=== PATIENT | female | born 1950 | race Hispanic/Latino ===

== ENCOUNTER → 2017-10-31 | Outpatient (CLI) | payer MEDICARE ==
[~2017-10-31] MED LIST: ALENDRONATE SOD70 MG PO; CALCIUM 500+D1 EACH PO; CEFDINIR300 MG PO; FOLIC ACID1 MG PO; IBUPROFEN400 MG PO; LISINOPRIL2.5 MG PO; METHOTREXATE2.5 MG PO; SIMVASTATIN20 MG PO
--- NOTE | 2017-10-31 12:24 | Diagnostic Imaging Report ---
Left knee MRI without contrast. History: Knee pain. Medial meniscus tear. Decreased range of motion. Comparison: None. Technique: Multiplanar multi-sequence MRI of the knee without contrast. Findings: Medial compartment: There is mid substance degeneration of the medial meniscus at the posterior horn with an obliquely oriented nondisplaced undersurface tear best seen on sagittal series 3 image 29. Medial compartmental articular cartilage surfaces are thinned regions of fraying and fissuring. The medial collateral ligament complex is degenerated but intact. Lateral compartment: There is degeneration and fraying of the lateral meniscus. No lateral meniscus tear is seen. Lateral compartmental articular cartilage surfaces are thinned. The lateral collateral ligament complex is intact. Intercondylar notch: There is scarring and attenuation of the anterior cruciate ligament. The posterior cruciate ligament is intact. Patellofemoral compartment: There is articular cartilage fraying and fissuring in the patellofemoral compartment. Extensor mechanism: The quadriceps and patellar tendons are normal. Other findings: There is a joint effusion and synovitis. There is no acute fracture, subluxation or avascular necrosis. There is a lobulated septated Lopez's cyst containing debris. IMPRESSION: Nondisplaced medial meniscus tear with mild degenerative arthrosis in the medial compartment of the knee. Mild degenerative arthrosis in the lateral and patellofemoral compartments. Joint effusion, synovitis and lobulated septated Lopez's cyst containing debris. Signed by: Dr. Chance Guzman M.D. on 10/31/2017 12:21 PM
== END ==
LOC: MRI 08:54
PROVIDERS: ATTEND Specialist
DX: S83.222A Peripheral tear of medial meniscus, current injury, left knee, initial encounter (principal)

== ENCOUNTER → 2017-12-27 | Day surgery (SDC) | payer MEDICARE ==
[2017-12-18 09:33] LABS: BASOPHILS # (AUTO) 0.1 (0.0-0.1); BASOPHILS % 0.6 % (0.0-1.0); EOSINOPHILS # (AUTO) 0.1 (0.0-0.4); EOSINOPHILS % 1.2 % (0.0-6.0); HEMATOCRIT 38.9 % (34.2-44.1); HEMOGLOBIN 12.7 g/dL (12.0-16.0); LYMPHOCYTES # (AUTO) 1.8 (1.0-3.2); LYMPHOCYTES % 23.5 % (18.0-39.1); MEAN CORPUSCULAR HEMOGLOBIN 31.1 pg (28-32); MEAN CORPUSCULAR HGB CONC 32.6 g/dL (31-35); MEAN CORPUSCULAR VOLUME 95.3 fL (81-99); MONOCYTES # (AUTO) 0.9 (0.2-0.8); NEUTROPHILS # (AUTO) 4.8 (2.1-6.9); NEUTROPHILS % 61.8 % (38.7-80.0); PLATELET COUNT 276 x10e3/uL (140-360); RED BLOOD COUNT 4.08 x10e6/uL (3.6-5.1); RED CELL DISTRIBUTION WIDTH 13.3 % (11.7-14.4)
--- NOTE | 2017-12-18 10:21 | Diagnostic Imaging Report ---
PROCEDURE: Frontal and lateral views of the chest. COMPARISON: None. INDICATIONS: PREOPERATIVE CHEST XRAY FOR KNEE SURGERY FINDINGS: Lines/tubes: None. Lungs: The lungs are well inflated. There is no evidence of pneumonia or pulmonary edema. Mild right basilar opacity, likely atelectasis. Pleura: There is no pleural effusion or pneumothorax. Heart and mediastinum: The cardiomediastinal silhouette is unremarkable. Bones: No acute bony abnormality. IMPRESSION: No acute cardiopulmonary disease. Dictated by: CASI HENDERSON M.D. on 12/18/2017 at 9:59 Electronically approved by: CASI HENDERSON M.D. on 12/18/2017 at 9:59
[~2017-12-27] MED LIST changes: +BUPIVACAINE 0.5%/EPI 30 ML SDV INJ ONE; +CEFAZOLIN SOD 2 GM/D5W 50ML 50 ML IV ONE; +DEXAMETHASONE SOD PHOS INJ 4 MG/ML VIAL ONE; +FENTANYL CITRATE/PF 100MCG/2 ML INJ ONE; +HYDROXYCHLOROQ200 MG PO; +KETOROLAC TROMETHAMINE 30 MG/ML VIAL ONE; +LIDOCAINE HCL 2% LOCAL INJ 5 ML SDV VIAL INJ ONE; +MEPERIDINE HCL INJ 50 MG/ML INJ ONE; +MIDAZOLAM HCL 2 MG/2 ML VIAL ONE; +ONDANSETRON HCL INJ 2 MG/ML VIAL ONE; +PREDNISONE5 MG PO; +PROPOFOL IV EMULSION 10 MG/ML 20 ML VIAL ONE; +SEVOFLURANE INHAL SOLN 250 ML PEN BTL ONE
[2017-12-27 14:40] VITALS: BP 109/71
--- NOTE | 2017-12-28 17:46 | Operative Report ---
DATE OF PROCEDURE: December 27, 2017 PREOPERATIVE DIAGNOSES: 1. Left knee medial meniscus tear. 2. Left knee degenerative joint disease of the knee. POSTOPERATIVE DIAGNOSES: 1. Left knee medial meniscus tear. 2. Left knee degenerative joint disease of the knee. 3. Left knee medial shelf plica. PROCEDURES PERFORMED: The patient underwent a 1. Left knee examination under anesthesia. 2. Left knee arthroscopy. 3. Left knee partial medial meniscectomy. 4. Left knee chondroplasty of the patella, the trochlea, the medial femoral condyle and the medial tibial plateau, the lateral femoral condyle and the lateral tibial plateau. 5. Resection of a medial shelf plica. CRYPTOLOGIST: None. ANESTHESIA: General endotracheal intubation anesthesia. IV FLUIDS: As per the anesthesia record. DESCRIPTION OF PROCEDURE: Ms. Ferreira was taken to the operating room and placed in the supine position on the operating table. Following induction of general anesthesia as well as endotracheal intubation, the patient's left lower extremity was examined under anesthesia. She was found to have a mild effusion within the knee joint but an otherwise ligamentously stable knee. The patient's lower extremity was prepped and draped in standard surgical fashion. A 2-portal technique was used to provide this patient an arthroscopic evaluation of the knee joint. Examination of the suprapatellar pouch, medial and lateral gutters found no evidence of loose bodies. There was, however, evidence of chondromalacia of both the patellar and trochlear surfaces. The scope was then advanced in the medial compartment. Examination of the medial compartment demonstrated a torn posterior horn of the medial meniscus. There was also chondromalacia of articulating surfaces. A combination of biting forceps and a motorized shaver were used to resect the torn portion of the meniscus. Chondroplasties of the medial femoral condyle and medial tibial plateau were performed at this time. The scope was then advanced into the intercondylar notch, and the anterior cruciate ligament was identified and found to be intact. The scope was then advanced into the lateral compartment, and there was chondromalacia of the articulating surfaces. The scope was then advanced to the intercondylar notch, and the anterior cruciate ligament was identified and found to be intact. The scope was then advanced into the lateral compartment, and chondromalacia of the lateral tibial plateau and lateral femoral condyle was encountered. A chondroplasty of each of these surfaces was performed at this time. The scope was then placed in the suprapatellar pouch, and chondroplasties of the patella and trochlea were performed. There was also a medial shelf plica, and this was resected at this time. The knee was deflated of its sterile normal saline. Each of the portal sites was closed using 4-0 nylon suture. The portal sites as well as the knee itself were then injected with half percent Marcaine with epinephrine. Sterile dressings were applied, and the patient was awakened and taken to the postanesthesia care unit in stable condition. Job#: [id number]
== END | disposition home or self-care (01) ==
LOC: OR 09:00
PROVIDERS: ATTEND Specialist
DX: S83.262A Peripheral tear of lateral meniscus, current injury, left knee, initial encounter (principal); M17.12 Unilateral primary osteoarthritis, left knee; M67.52 Plica syndrome, left knee; M22.42 Chondromalacia patellae, left knee; N39.0 Urinary tract infection, site not specified; I10 Essential (primary) hypertension; E78.00 Pure hypercholesterolemia, unspecified; F17.200 Nicotine dependence, unspecified, uncomplicated; X58.XXXA Exposure to other specified factors, initial encounter; Z01.810 Encounter for preprocedural cardiovascular examination; Z01.812 Encounter for preprocedural laboratory examination; Z01.818 Encounter for other preprocedural examination; Z68.34 Body mass index [BMI] 34.0-34.9, adult
CPT/HCPCS: 29881; 36415; 71046; 85025; 93005; J1100; J1885; J2001; J2175; J2250; J2405

== ENCOUNTER → 2019-02-12 | Outpatient (CLI) | payer MEDICARE ==
[~2019-02-12] MED LIST changes: -BUPIVACAINE 0.5%/EPI 30 ML SDV INJ ONE; -CEFAZOLIN SOD 2 GM/D5W 50ML 50 ML IV ONE; -DEXAMETHASONE SOD PHOS INJ 4 MG/ML VIAL ONE; -FENTANYL CITRATE/PF 100MCG/2 ML INJ ONE; -KETOROLAC TROMETHAMINE 30 MG/ML VIAL ONE; -LIDOCAINE HCL 2% LOCAL INJ 5 ML SDV VIAL INJ ONE; -MEPERIDINE HCL INJ 50 MG/ML INJ ONE; -MIDAZOLAM HCL 2 MG/2 ML VIAL ONE; -ONDANSETRON HCL INJ 2 MG/ML VIAL ONE; -PROPOFOL IV EMULSION 10 MG/ML 20 ML VIAL ONE; -SEVOFLURANE INHAL SOLN 250 ML PEN BTL ONE
--- NOTE | 2019-02-12 09:52 | Diagnostic Imaging Report ---
MRI of the left shoulder without contrast. History: Shoulder pain. Decreased range of motion. Pain not responding to conservative management. Comparison: None Technique: Coronal PD FS, sagital PD FS, and axial PD and PD FS. Findings: Rotator cuff: Rotator cuff tendinosis with full-thickness tear involving the supraspinatus and anterior fibers of the infraspinatus tendons at the humeral insertion site. There is retraction of the torn fibers to the level of the glenoid and mild supraspinatus and infraspinatus muscle atrophy. Additionally, there is subscapularis tendinosis. The teres minor tendon is intact. Osseous acromion complex: Type II acromion with mild lateral downsloping. Mild degenerative arthrosis at the acromioclavicular joint. Moderate subacromial/subdeltoid bursitis. Glenohumeral joint: Degeneration and fraying of the labrum. The articular cartilage surfaces are slightly thin. Effusion/synovitis in the rotator interval and subcoracoid space. Biceps tendon: Intra-articular biceps tendinosis with fraying at the biceps anchor. Other findings: Negative for muscle denervation or osseous fracture. Impression: Rotator cuff tendinosis with full-thickness tear involving the supraspinatus and anterior fibers of the infraspinatus tendons at the humeral insertion site. There is retraction of the torn fibers to the level of the glenoid and mild supraspinatus and infraspinatus muscle atrophy. Effusion/synovitis in the rotator interval and subcoracoid space.Moderate subacromial/subdeltoid bursitis. Intra-articular biceps tendinosis with fraying at the biceps anchor. Signed by: Dr. Chance Guzman M.D. on 02/12/2019 9:48 AM
== END ==
LOC: MRI 08:18
PROVIDERS: ATTEND Specialist
DX: M75.122 Complete rotator cuff tear or rupture of left shoulder, not specified as traumatic (principal)

== ENCOUNTER → 2019-02-27 | Day surgery (SDC) | payer MEDICARE ==
[2019-02-19 12:38] LABS: BASOPHILS % 0.4 % (0.0-1.0); EOSINOPHILS % 0.2 % (0.0-6.0); HEMATOCRIT 36.6 % (34.2-44.1); HEMOGLOBIN 11.8 g/dL (12.0-16.0); LYMPHOCYTES # (AUTO) 1.1 (1.0-3.2); LYMPHOCYTES % 12.5 % (18.0-39.1); MEAN CORPUSCULAR HEMOGLOBIN 30.6 pg (28-32); MEAN CORPUSCULAR HGB CONC 32.2 g/dL (31-35); MEAN CORPUSCULAR VOLUME 95.1 fL (81-99); MONOCYTES # (AUTO) 0.4 (0.2-0.8); MONOCYTES % 4.5 % (4.4-11.3); NEUTROPHILS # (AUTO) 7.2 (2.1-6.9); NEUTROPHILS % 80.8 % (38.7-80.0); PLATELET COUNT 267 x10e3/uL (140-360); RED BLOOD COUNT 3.85 x10e6/uL (3.6-5.1); RED CELL DISTRIBUTION WIDTH 14.7 % (11.7-14.4)
--- NOTE | 2019-02-19 14:13 | Diagnostic Imaging Report ---
EXAMINATION: CHEST 2 VIEWS INDICATION: Pre-operative COMPARISON: None FINDINGS: LINES/TUBES:None LUNGS:The lungs are well-inflated. No focal consolidation or pulmonary edema. PLEURA:No pleural effusion or pneumothorax. MEDIASTINUM:The cardiomediastinal silhouette appears normal in size and shape. BONES/SOFT TISSUES:No acute osseous injury. ABDOMEN:No free air under the diaphragm. IMPRESSION: No focal pneumonia or pulmonary edema. Signed by: Della Delvalle MD on 02/19/2019 2:10 PM
[~2019-02-27] MED LIST changes: +ACETAMINOPHEN 1000 MG/100 ML IV ONE; +ASPIRIN81 MG PO; +ATORVASTATIN CA20 MG PO; +BUPIVACAINE 0.25% 30ML SDV INJ ONE; +CEFAZOLIN SOD 1 GM/NS 50ML 100 ML IV ONE; +DEXAMETHASONE SOD PHOS INJ 4 MG/ML VIAL ONE; +EPINEPHRINE 1 MG/ML 30ML VIAL ONE; +FENTANYL CITRATE/PF 100MCG/2 ML INJ ONE; +GLYCOPYRROLATE INJ 1MG/ 5 ML SYR ONE; +LIDOCAINE HCL 2% JELLY 5 ML TUBE ONE; +LIDOCAINE HCL 2% LOCAL 20 ML VIAL ONE; +LIDOCAINE HCL 2% LOCAL INJ 5 ML SDV VIAL INJ ONE; +MIDAZOLAM HCL 2 MG/2 ML VIAL ONE; +NEOSTIGMINE 5 MG/5ML SYR ONE; +ONDANSETRON HCL INJ 2MG/ML 2ML 2 MG/ML VIAL ONE; +PROPOFOL IV EMULSION 10 MG/ML 20 ML VIAL ONE; +ROCURONIUM BROMIDE 10 MG/ML 5ML VIAL ONE; +SEVOFLURANE INHAL SOLN 250 ML PEN BTL ONE
[2019-02-27 13:05] VITALS: BP 110/50
--- NOTE | 2019-03-06 17:47 | Operative Report ---
DATE OF PROCEDURE: 02/27/2019 SURGEON: Ari Malloy MD PREOPERATIVE DIAGNOSES: 1. Left shoulder rotator cuff tear. 2. Left shoulder acromioclavicular joint arthritis. POSTOPERATIVE DIAGNOSES: 1. Left shoulder rotator cuff tear. 2. Left shoulder synovitis. 3. 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 4. Left shoulder acromioclavicular joint arthritis. OPERATIVE PROCEDURES PERFORMED: The patient underwent left shoulder examination under anesthesia, left shoulder arthroscopy, left shoulder arthroscopic debridement of synovitis, left shoulder chondroplasty of the humeral head and glenoid, left shoulder arthroscopic rotator cuff reconstruction, left shoulder arthroscopic subacromial decompression and acromioplasty, and left shoulder arthroscopic distal clavicle resection. [employer]: CECILY Crook. ANESTHESIA: General endotracheal intubation anesthesia with a regional block. IV FLUIDS: As per the anesthesia record. BLOOD LOSS: Minimal. BRIEF DESCRIPTION OF THE PATIENT'S OPERATIVE PROCEDURE: Ms. Ferreira was taken to the operating room and placed in the supine position on the operating table. Following induction of general anesthesia as well as endotracheal intubation, the patient's operating room table was converted to a beach chair-type position. Left shoulder was placed through range of motion and found to have full passive range of motion to the shoulder joint. There were no gross abnormalities. There was no evidence of instability of the shoulder. The patient's shoulder and upper extremity were prepped and draped in standard surgical fashion. Standard posterolateral and anterior portal was created without difficulty. The scope was placed within the shoulder joint atraumatically. Examination of the glenohumeral articulation demonstrated chondromalacia of both surfaces. There were no loose bodies within the shoulder joint. The long head of the biceps was found to be contained within the shoulder. There was a full-thickness rotator cuff tear. A probe was placed in the shoulder joint and the biceps was drawn within the shoulder and found to be intact. The detachment was also found to be intact. There was diffuse synovitis within the shoulder. The shaver was placed in the shoulder joint and the synovitis was debrided. Chondroplasties of the humeral head and glenoid were performed at this time. The torn rotator cuff was also debrided and the insertion site was debrided to a bleeding bony bed. The shoulder was inflated with sterile normal saline. The scope was transferred to subacromial space. A lateral portal was created with an outside-in technique. Significant bursal inflammation was encountered. A bursectomy was performed. The patient's rotator cuff entry was easily identified. A shaver was used to further debride the torn rotator cuff. The insertion site was also further debrided to a bleeding bony bed. A suture anchor was inserted into the greater tuberosity of the humerus and the suture arms from that anchor were woven through the rotator cuff tissue. The rotator cuff tissue was then advanced into its normal insertion site and tied firmly. This resulted in reapproximation of the rotator cuff tissue to its normal insertion. There was a downward sloping acromion. The coracoacromial ligament was resected. An acromioplasty was performed at this time. The shoulder was placed through range of motion and found to not impinge upon the acromion. Attention was then turned to the acromioclavicular joint. The anterior portal was transferred to subacromial space. The shaver was transferred to the anterior portal and a 1 cm section of the distal clavicle was resected. The completion of the resection was visualized using the scope and also transferred to the anterior portal. The shoulder was then inflated with sterile normal saline. All port sites were closed and sterile dressings were applied. The patient was provided a shoulder immobilizer, awakened, and taken to the postanesthesia care in stable condition. MD KURTIS Galeana/JESSICA /[id number]
== END | disposition home or self-care (01) ==
LOC: OR 07:15
PROVIDERS: ATTEND Specialist
DX: M75.122 Complete rotator cuff tear or rupture of left shoulder, not specified as traumatic (principal); M19.012 Primary osteoarthritis, left shoulder; I10 Essential (primary) hypertension; M06.9 Rheumatoid arthritis, unspecified; Z01.810 Encounter for preprocedural cardiovascular examination; Z01.812 Encounter for preprocedural laboratory examination; Z01.811 Encounter for preprocedural respiratory examination; M65.812 Other synovitis and tenosynovitis, left shoulder; M94.212 Chondromalacia, left shoulder
CPT/HCPCS: 29824; 29826; 29827; 36415; 71046; 85025; 93005; C1713; J0131; J0690; J1100; J2001 ×3; J2250; J2405; J2704; J3010; J3490